=== PATIENT | female | born 1950 | race Caucasian/White ===

== ENCOUNTER → 2016-12-04 09:34 | Outpatient (CLI) | payer MEDICARE ==
[2014-03-15 10:32] VITALS: BMI 18.9
[~2016-12-04 09:34] MED LIST: CYMBALTA20 MG PO; FLECTOR1 PATCH TP; FLOVENT DI50 MCG/DIS INH; MAGNESIUM OXID250 MG PO; MELOXICAM PO; MULTI-DAY VITAM1 TAB PO; NORCO 10/325 TA1 TA1 PO; OS-CAL500 MG PO; PROTONIX20 MG PO; PULMICORT FLEX90 MCG INH; SINGULAIR10 MG PO; SKELAXIN800 MG PO; TEMAZEPAM PO; VITAMIN D5000 UNIT PO
== END | disposition home or self-care (01) ==
LOC: D.MAMMO 09:34
DX: Z12.31 Encounter for screening mammogram for malignant neoplasm of breast (principal)

== ENCOUNTER 2017-04-03 09:40 | Outpatient (CLI) | payer MEDICARE ==
[~2017-04-03] VITALS: Ht 152.4 cm; Wt 47.7 kg
[2017-04-03 10:53] VITALS: Ht 152.4 cm; Wt 47.7 kg
== END 2017-04-03 11:05 ==
LOC: D.OPS 09:40
DX: M81.0 Age-related osteoporosis without current pathological fracture (principal)

== ENCOUNTER 2019-11-24 15:30 | Outpatient (CLI) | payer OTHER ==
[2017-04-03 10:53] VITALS: BMI 20.5
== END 2019-11-24 23:59 | disposition home or self-care (01) ==
LOC: D.MAMMO 15:30
PROVIDERS: ATTEND Family Medicine
DX: Z12.31 Encounter for screening mammogram for malignant neoplasm of breast (principal)